=== PATIENT | male | born 1975 | race Caucasian/White ===

== ENCOUNTER 2021-05-25 15:39 | Emergency (ER) | payer OTHER ==
[~2021-05-25] VITALS: Ht 185.4 cm; Wt 74.8 kg
--- NOTE | ~2021-05-25 | EMS ---
[address] [address] EMS Patient Care Report Name: GAVIN LAROSE Room #: REG GENNARO Voss#: [id number] Admission: 05/25/21 Attend Phys: Discharge: Date of : 75 Report #: [id number] THIS REPORT FOR: //name// Report Transmitted: 05/25/2021 15:54 EMS Care Summary [facility] Incident [id number] @ 05/25/2021 15:14 Incident Location [address] [place] [address] Patient JOSEFA LAROSE Male, 45 Years 1975 Patient Address [address] [address] Patient History None Reported, Patient Allergies No known allergies, Patient Medications None Reported, Chief Complaint right knee pain Disposition Transported No Lights/[place] Dis[place] Reason Falls Transported To [facility] Narrative Arrived to find pt being walked to the ambulance alert and oriented. Pt stated he was walking when he tripped and twisted his right knee. Pt complained of right knee pain. Pt denied any other complaint. Pt denied striking head, loss [address] [address] EMS Patient Care Report Name: GAVIN LAROSE Room #: REG Gabby.R.#: [id number] Admission: 05/25/21 Attend Phys: Discharge: Date of : 75 Report #: [id number] of consciousness, neck and back pain. Pt rested in the position of comfort without change en route to the ER. Upon arrival pt was taken to the ER waiting room and care transferred to director of midwifery/staff midwife with report. Initial Vitals @15:33P: 75,R: 18,BP: 124/72,GCS: 15,SpO2: 96,Revised Trauma: 12, @15:28P: 82,R: 18,BP: 134/73,Pain: 2/10,GCS: 15,Temp: 97.8F,SpO2: 94,Revised Trauma: 12, Impression Injury of Lower Leg Timeline 15:13,Call Received 15:13,Psap Call 15:14,Dispatched 15:15,En Route 15:24,On Scene 15:24,At Patient 15:27,Depart Scene 15:28,BP: 134/73 M,PULSE: 82,RR: 18 R,SPO2: 94 Ox,ETCO2: ,BG: ,PAIN: 2,GCS: 15, 15:33,BP: 124/72 M,PULSE: 75,RR: 18 R,SPO2: 96 Ox,ETCO2: ,BG: ,PAIN: ,GCS: 15, 15:35,At Destination 15:48,Call Closed Disclaimer [email or web address] Copyright 2020 [employer] This EMS Care Summary contains data elements from the applicable legal record (which may be displayed differently). It is designed to provide pertinent information for the following purposes: continuity of care, clinical quality, and state data reporting. The complete legal record is available to ED staff and administrators of the receiving hospital in [employer]'s Patient Tracker. All data is provided "as is."
[~2021-05-25 15:39] MED LIST: AMBIEN 10 MG TA10 MG; CLONAZEPAM; CLONAZEPAM PO; LITHIUM; LITHIUM CARBON150 MG PO; LUNESTA3 MG; LUNESTA3 MG PO; TRAZODONE 150150 M1; ZOFRAN 4 MG ORAL4 MG PO; ZPAK PO; ZYPREXA2.5 MG; ZYPREXA2.5 MG PO
[2021-05-25 16:29] VITALS: BP 125/68
== END 2021-05-25 17:07 | disposition home or self-care (01) ==
LOC: ER 15:39
DX: S83.421A Sprain of lateral collateral ligament of right knee, initial encounter (principal); Z79.891 Long term (current) use of opiate analgesic; Z79.899 Other long term (current) drug therapy; Z87.891 Personal history of nicotine dependence; X50.1XXA Overexertion from prolonged static or awkward postures, initial encounter; Y93.01 Activity, walking, marching and hiking; Y92.410 Unspecified street and highway as the place of occurrence of the external cause; Y99.8 Other external cause status

== ENCOUNTER 2021-05-26 04:54 | Emergency (ER) | payer OTHER ==
[~2021-05-26] VITALS: Ht 188 cm; Wt 74.8 kg
[2021-05-26 05:29] LABS: ABSOLUTE NEUTROPHILS 3.2 thou/uL (1.4-8.2); BASOPHILS 0.5 % (0.0-2.0); EOSINOPHILS 6.9 % (0.0-3.0); HEMOGLOBIN 13.6 gm/dL (14.0-18.0); MCH 32.8 pg (26.0-34.0); MCV 96.5 fL (80.0-100.0); MONOCYTES 9.5 % (1.0-8.0); PLATELET COUNT 212 thou/uL (150-400); POLYS 51.1 % (36.0-66.0); RBC 4.15 mil/uL (4.50-6.00); RDW 13.4 % (10.5-14.5); WBC 6.3 thou/uL (4.0-11.0)
[2021-05-26 05:41] LABS: CALCIUM 8.8 mg/dL (8.5-10.1); POTASSIUM 3.8 mmol/L (3.5-5.1)
[2021-05-26 08:07] VITALS: BP 115/73
== END 2021-05-26 07:55 | disposition home or self-care (01) ==
LOC: ER 04:54
PROVIDERS: Emergency Medicine
DX: R45.851 Suicidal ideations (principal); Z20.822 Contact with and (suspected) exposure to COVID-19; F32.89 Other specified depressive episodes; Z79.899 Other long term (current) drug therapy; Z87.891 Personal history of nicotine dependence

== ENCOUNTER 2021-06-20 18:30 | Emergency (ER) | payer OTHER ==
[~2021-06-20] VITALS: Ht 188 cm; Wt 77.1 kg
[2021-06-20] MEDS ORDERED: LITHIUM CARBON150 MG PO (18:40)
[2021-06-20 19:25] VITALS: BP 113/76
== END 2021-06-20 19:35 | disposition home or self-care (01) ==
LOC: ER 18:30
DX: M79.602 Pain in left arm (principal); F31.9 Bipolar disorder, unspecified; Z79.899 Other long term (current) drug therapy; Z87.891 Personal history of nicotine dependence